=== PATIENT | male | born 1965 | race Caucasian/White ===

== ENCOUNTER 2019-11-22 08:03 | Day surgery (SDC) | payer BC ==
[2019-11-22] VITALS (11 sets, daily range): BP systolic 113–128; BP diastolic 61–81
[~2019-11-22] VITALS: Ht 182.9 cm; Wt 71.0 kg
[2019-11-22] MEDS ORDERED: LORazepam 0.5 MG tablet PO PRN (08:30)
[2019-11-22] MEDS ORDERED: normal saline 1,000 ML IV SCH (08:30)
[2019-11-22] MEDS ORDERED: glucagon, human recombinant 1mg kit SUBCUT PRN (08:30)
[2019-11-22] MEDS ORDERED: nitroGLYCERIN 0.4mg SUBLingual tab SL PRN (08:30)
[2019-11-22] MEDS ORDERED: dextrose ORAL solution 15 GM/59 ML bottle PO PRN ×2 (08:30)
[2019-11-22] MEDS ORDERED: dextrose 50%-water 50ml dispensing syringe IV PRN ×2 (08:30)
[2019-11-22] MEDS ORDERED: diphenhydrAMINE 25mg capsule PO PRN (08:30)
[2019-11-22] MEDS ORDERED: MESSAGE TO PHARMACY PO ONE (08:30)
[2019-11-22] MEDS ORDERED: insulin Lispro (HumaLOG) vial - multi-dose SQ SCH (08:30)
[2019-11-22] MEDS ORDERED: PIOG15TA67 PO (08:36)
[2019-11-22] MEDS ORDERED: METF-438 PO (08:36)
[2019-11-22] MEDS ORDERED: PRAV20TA PO (08:36)
[2019-11-22] MEDS ORDERED: INSU100V9 SQ (08:36)
[2019-11-22 09:10] LABS: BASOPHILS # (AUTO) 0.1 X10'3 (0-0.2); BASOPHILS % (AUTO) 0.9 % (0-1); EOSINOPHILS # (AUTO) 0.2 X10'3 (0-0.9); HEMATOCRIT 44.6 % (42.0-52.0); HEMOGLOBIN 15.2 g/dl (14.0-17.9); LYMPHOCYTES # (AUTO) 1.6 X10'3 (1.1-4.8); LYMPHOCYTES % (AUTO) 24.3 % (21-51); MEAN CORPUSCULAR HEMOGLOBIN 33.4 PG (27.0-31.0); MEAN CORPUSCULAR HGB CONC 34.1 g/dL (33.0-36.5); MEAN CORPUSCULAR VOLUME 97.9 FL (78-98); MEAN PLATELET VOLUME 8.7 FL (7.4-10.4); MONOCYTES # (AUTO) 0.5 X10'3 (0-0.9); MONOCYTES % (AUTO) 7.5 % (2-12); NEUTROPHILS # (AUTO) 4.4 X10'3 (1.8-7.7); NEUTROPHILS % (AUTO) 64.3 % (42-75); PLATELET COUNT 254 X10'3 (140-440); RED BLOOD COUNT 4.56 X10'6 (4.70-6.10); WHITE BLOOD COUNT 6.8 X10'3 (4.5-11.0)
[2019-11-22 09:17] LABS: ANION GAP 10 (8-16); BLOOD UREA NITROGEN 17 MG/DL (7-18); BUN/CREATININE RATIO 15.6 (5.4-32.0); CALCIUM 8.7 MG/DL (8.5-10.1); CHLORIDE 105 MMOL/L (99-107); CREATININE 1.09 MG/DL (0.60-1.10); GLUCOSE 255 MG/DL (70-104); SODIUM 141 MMOL/L (135-145); TOTAL CARBON DIOXIDE 26.4 MMOL/L (24-32); eGFR 70 ML/MIN
[2019-11-22 09:21] LABS: PARTIAL THROMBOPLASTIN TIME 25 SECONDS (22-32)
[2019-11-22] MEDS ORDERED: LIDOcaine 1% (10mg/ml)w/preservative injection 20ml MDV ONE (11:23)
[2019-11-22] MEDS ORDERED: fentaNYL/PF 50MCG/1 ML 2ML syringe ONE (11:23)
[2019-11-22] MEDS ORDERED: iohexol 350 MG/ML 50ML vial IV ONE (11:23)
[2019-11-22] MEDS ORDERED: midazolam 2 mg/2 ml injection ONE (11:23)
[2019-11-22] MEDS ORDERED: iohexol 350MG/ML 100ml bottle IV ONE (11:23)
[2019-11-22] MEDS ORDERED: HYDROcodone/acetaminophen 10/325mg tab PO PRN (12:30)
[2019-11-22] MEDS ORDERED: ondansetron/PF 4mg/2ml inj IV PRN (12:30)
[2019-11-22] MEDS ORDERED: OXAZEpam 15mg capsule PO PRN (12:30)
[2019-11-22] MEDS ORDERED: HYDROcodone/acetaminophen 5mg/325mg tablet PO PRN (12:30)
[2019-11-22] MEDS ORDERED: proCHLORperazine 10 MG/2 ml inj IV PRN (12:30)
[2019-11-22] MEDS ORDERED: insulin glargine (Lantus) pen - multi-dose SQ SCH (21:00)
== END 2019-11-22 17:45 | disposition home or self-care (01) ==
LOC: SSTAY O 08:03 → MED 3N 08:11 → SSTAY O 17:45
PROVIDERS: ATTEND Internal Medicine Cardiovascular Disease
DX: R94.39 Abnormal result of other cardiovascular function study (principal); I25.10 Atherosclerotic heart disease of native coronary artery without angina pectoris; E11.9 Type 2 diabetes mellitus without complications; E78.5 Hyperlipidemia, unspecified; Z79.899 Other long term (current) drug therapy; Z72.89 Other problems related to lifestyle; Z87.891 Personal history of nicotine dependence; Z79.84 Long term (current) use of oral hypoglycemic drugs; Z79.01 Long term (current) use of anticoagulants
CPT/HCPCS: 36415; 71046; 80048; 82948; 85025; 85610; 85730; 93005; 93458; 99152; C1769; J1644; J1815; J2001; J2250; J3010; J7030; Q0163; Q9967; A4620; A6258; C1760